=== PATIENT | female | born 1980 | race Caucasian/White ===

== ENCOUNTER 2018-01-01 14:39 | Emergency (ER) | payer OTHER ==
[2018-01-01 15:02] VITALS: TEMP 98.7
[2018-01-01 16:15] LABS: Appearance,Urine Clear (Clear); Bacteria,Urine Rare /hpf; Bilirubin,Urine Negative (Negative); Blood,Urine Trace (Negative); Color,Urine Yellow; Glucose,Urine (UA) Negative (Negative); Ketones,Urine Negative (Negative); Leukocyte Esterase,Urine Negative (Negative); Mucus,Urine Rare /hpf; Nitrite,Urine Negative (Negative); PH, Urine 5.5 (5.0-8.0); Protein,Urine Negative (Negative); RBC,Urine 3 /hpf (0-5); Squamous Epithelial Cell,Urine 1 /hpf (0-4); Urobilinogen,Urine <2.0 mg/dL (<2.0); WBC,Urine 1 /hpf (0-5)
[2018-01-01 16:28] LABS: Amphetamine Screen,Urine Not Detected (NotDetected); Barbiturate Screen,Urine Not Detected (NotDetected); Benzodiazepines Screen,Urine Not Detected (NotDetected); Cocaine Screen,Urine Not Detected (NotDetected); Methadone Screen, Urine Not Detected (NotDetected); Opiate Screen,Urine Not Detected (NotDetected); Oxycodone Screen, Urine Not Detected (NotDetected); Phencyclidine Screen,Urine Not Detected (NotDetected); Tricyclic Antidepressant,Urine Not Detected (NotDetected); Urn Cannabinoid Scrn Not Detected (NotDetected)
[2018-01-01 16:51] LABS: Basophils % (A) 0 %; Eosinophils # (A) 0.1 k/uL (0-0.7); Eosinophils % (A) 3 %; HCT 41.1 % (34.0-46.0); HGB 13.5 gm/dL (11.4-16.0); Lymphocytes # (A) 1.6 k/uL (1.0-4.8); Lymphocytes % (A) 32 %; MCH 29.4 pg (25.0-35.0); MCV 89.1 fL (80.0-100.0); Mean Platelet Volume 8.3; Monocytes # (A) 0.3 k/uL (0-1.0); Monocytes % (A) 7 %; Neutrophils # (A) 2.9 k/uL (1.3-7.7); Neutrophils % (A) 57 %; Platelet Count 221 k/uL (150-450); RBC 4.61 m/uL (3.80-5.40); RDW 14.1 % (11.5-15.5)
[2018-01-01 17:03] LABS: ALT 33 U/L (9-52); AST 22 U/L (14-36); Albumin 3.5 g/dL (3.5-5.0); Alkaline Phosphatase 51 U/L (38-126); Anion Gap 10 mmol/L; Blood Urea Nitrogen 11 mg/dL (7-17); Carbon Dioxide 26 mmol/L (22-30); Chloride 107 mmol/L (98-107); Glucose 92 mg/dL (74-99); Potassium 4.4 mmol/L (3.5-5.1); Sodium 143 mmol/L (137-145); Total Bilirubin 0.4 mg/dL (0.2-1.3); Total Protein 6.4 g/dL (6.3-8.2)
[2018-01-01] MEDS ORDERED: methylPREDNISolone SOD SUCCI 125 MG/2 ML VIAL IV STA (17:08)
[2018-01-01] MEDS ORDERED: METOCLOPRAMIDE 5 MG/ML 2 ML VIAL IVP STA (17:08)
[2018-01-01] MEDS ORDERED: FAMOTIDINE 20 MG/2 ML VIAL IV STA (17:08)
[2018-01-01] MEDS ORDERED: diphenhydrAMINE 50 MG/ML 1 ML VIAL IVP STA (17:08)
[2018-01-01 17:39] LABS: Partial Thromboplastin Time 22.6 sec (22.0-30.0); Prothrombin Time 9.9 sec (9.0-12.0)
[2018-01-01 17:46] LABS: Creatine Kinase 57 U/L (30-135)
[2018-01-01 17:56] LABS: Creatine Kinase MB 0.3 ng/mL (0.0-2.4)
--- NOTE | 2018-01-01 17:58 | ED ---
General Adult HPI - General Chief complaint: Recheck/Abnormal Lab/Rx Stated complaint: Nausea Dizziness Time Seen by Provider: 01/01/18 16:24 Source: patient, RN notes reviewed, old records reviewed Mode of arrival: ambulatory Limitations: no limitations - History of Present Illness Initial comments: This patient is a 37-year-old female with multiple vague complaints. She reports that she's been feeling very weak and fatigued. She reports that she's been having muscle twitches and spasms. She relates that she has felt nauseated earlier in the week and had a few episodes of vomiting. Patient also relates that 2 days ago she had an episode for 6 hours or she was unable to speak. She reports that that resolved slowly. At this time she denies any headache, denies any chest pain or shortness of breath she just generally feels weak and nauseated. She reports that her stomach sometimes feels like it did not. Patient also presents with 1 day of hives. - Related Data Home Medications Medication Instructions Recorded Confirmed Ibuprofen [Advil] 600 mg PO Q8HR PRN 01/01/18 01/01/18 Previous Rx's Medication Instructions Recorded Meclizine [Antivert] 25 mg PO BID #20 tab 01/01/18 Ondansetron Odt [Zofran Odt] 4 mg PO Q8HR PRN #20 tab 01/01/18 diphenhydrAMINE [Benadryl] 25 mg PO TID #20 capsule 01/01/18 predniSONE 20 mg PO BID #6 tab 01/01/18 Allergies Allergy/AdvReac Type Severity Reaction Status Date / Time paliperidone [From Invega] Allergy Unknown Verified 01/01/18 16:48 Review of Systems ROS Statement: Those systems with pertinent positive or pertinent negative responses have been documented in the HPI. ROS Other: All systems not noted in ROS Statement are negative. Past Medical History Past Medical History: No Reported History History of Any Multi-Drug Resistant Organisms: None Reported Past Surgical History: Cholecystectomy, Tubal Ligation Past Psychological History: No Psychological Hx Reported Smoking Status: Current every day smoker Past Alcohol Use History: Occasional Past Drug Use History: None Reported General Exam - General Exam Comments Initial Comments: 37-year-old female. Alert and oriented. No distress. Limitations: no limitations General appearance: alert, in no apparent distress Head exam: Present: atraumatic, normocephalic, normal inspection Eye exam: Present: normal appearance, PERRL, EOMI. Absent: scleral icterus, conjunctival injection, periorbital swelling ENT exam: Present: normal exam, mucous membranes moist Neck exam: Present: normal inspection. Absent: tenderness, meningismus, lymphadenopathy Respiratory exam: Present: normal lung sounds bilaterally. Absent: respiratory distress, wheezes, rales, rhonchi, stridor Cardiovascular Exam: Present: regular rate, normal rhythm, normal heart sounds. Absent: systolic murmur, diastolic murmur, rubs, gallop, clicks GI/Abdominal exam: Present: soft, normal bowel sounds. Absent: distended, tenderness, guarding, rebound, rigid Extremities exam: Present: normal inspection, full ROM, normal capillary refill. Absent: tenderness, pedal edema, joint swelling, calf tenderness Back exam: Present: normal inspection, full ROM Neurological exam: Present: alert, oriented X3, CN II-XII intact, normal gait Expanded Patient oriented to: Present: person, place, time Speech: Present: fluid speech Cranial nerves: EOM's Intact: Normal Cerebellar function: Finger to Nose: Normal Upper motor neuron: Pronator Drift: Normal Sensory exam: Upper Extremity Light Touch: Normal, Lower Extremity Light Touch: Normal Motor strength exam: RUE: 5, LUE: 5, RLE: 5, LLE: 5 Eye Response: (4) open spontaneously Motor Response: (6) obeys commands Verbal Response: (5) oriented [place] Total: 15 Psychiatric exam: Present: normal affect, normal mood Skin exam: Present: warm, dry, intact, normal color, rash (Patient has some mild hives noted.) Course Vital Signs 01/01/18 01/01/18 14:57 17:30 Temperature 98.7 F Pulse Rate 89 74 Respiratory 18 16 Rate Blood Pressure 120/71 118/56 O2 Sat by Pulse 97 96 Oximetry EKG Findings - EKG Comments: EKG Findings:: EKG shows normal sinus rhythm and normal EKG noted. Ventricular rate of 71 bpm. OH interval is 154 ms. QRS duration 70 ms. QT QTc is 390/423 ms. Medical Decision Making - Medical Decision Making Patient is a 37-year-old female multiple complaints including fatigue, occasional dizziness, nausea, and hives. Patient also states that she had a episode of difficulty in speech a few days ago. It lasted 6 hours and then resolved. This time patient's labwork was reviewed and within normal limits. EKG shows no abnormalities. Troponins negative. All of her blood work was within normal range. Urinalysis shows no signs of infection. Urine drug screen is normal. She has no focal or lateralizing findings on neurological exam. Lungs are clear. She has no significant abdominal tenderness. She really complains of no pain just some mild dizziness. Patient was given nausea medication Benadryl. She reports she feels somewhat better. Her hives are diminishing at this time. This were no focal reason for patient's related dizziness and multiple complaints. I discussed that she should follow-up with primary care provider as well as possibly neurology. Patient be given referrals. We'll start the patient on meclizine and nausea medicine for dizziness and nausea. Discussed appropriate follow-up. All questions answered and return parameters were discussed. - Lab Data Result diagrams: 01/01/18 16:41 01/01/18 16:41 Lab Results 01/01/18 01/01/18 01/01/18 Range/Units 16:03 16:03 16:41 WBC (3.8-10.6) k/uL RBC (3.80-5.40) m/uL Hgb (11.4-16.0) gm/dL Hct (34.0-46.0) % MCV (80.0-100.0) fL MCH (25.0-35.0) pg MCHC (31.0-37.0) g/dL RDW (11.5-15.5) % Plt Count (150-450) k/uL Neutrophils % % Lymphocytes % % Monocytes % % Eosinophils % % Basophils % % Neutrophils # (1.3-7.7) k/uL Lymphocytes # (1.0-4.8) k/uL Monocytes # (0-1.0) k/uL Eosinophils # (0-0.7) k/uL Basophils # (0-0.2) k/uL PT (9.0-12.0) sec INR (<1.2) APTT (22.0-30.0) sec Sodium 143 (137-145) mmol/L Potassium 4.4 (3.5-5.1) mmol/L Chloride 107 (98-107) mmol/L Carbon Dioxide 26 (22-30) mmol/L Anion Gap 10 mmol/L BUN 11 (7-17) mg/dL Creatinine 0.80 (0.52-1.04) mg/dL Est GFR (CKD-EPI)AfAm >90 (>60 ml/min/1.73 sqM) Est GFR (CKD-EPI)NonAf >90 (>60 ml/min/1.73 sqM) Glucose 92 (74-99) mg/dL Calcium 9.0 (8.4-10.2) mg/dL Magnesium (1.6-2.3) mg/dL Total Bilirubin 0.4 (0.2-1.3) mg/dL AST 22 (14-36) U/L ALT 33 (9-52) U/L Alkaline Phosphatase 51 (38-126) U/L Total Creatine Kinase (30-135) U/L CK-MB (CK-2) (0.0-2.4) ng/mL CK-MB (CK-2) Rel Index Troponin I (0.000-0.034) ng/mL NT-Pro-B Natriuret Pep pg/mL Total Protein 6.4 (6.3-8.2) g/dL Albumin 3.5 (3.5-5.0) g/dL Amylase (30-110) U/L Lipase (23-300) U/L Urine Color Yellow Urine Appearance Clear (Clear) Urine pH 5.5 (5.0-8.0) Ur Specific [place] 1.010 (1.001-1.035) Urine Protein Negative (Negative) Urine Glucose (UA) Negative (Negative) Urine Ketones Negative (Negative) Urine Blood Trace H (Negative) Urine Nitrite Negative (Negative) Urine Bilirubin Negative (Negative) Urine Urobilinogen <2.0 (<2.0) mg/dL Ur Leukocyte Esterase Negative (Negative) Urine RBC 3 (0-5) /hpf Urine WBC 1 (0-5) /hpf Ur Squamous Epith Cells 1 (0-4) /hpf Urine Bacteria Rare H (None) /hpf Urine Mucus Rare H (None) /hpf Urine HCG, Qual Not Detected (Not Detectd) Urine Opiates Screen Not Detected (NotDetected) Ur Oxycodone Screen Not Detected (NotDetected) Urine Methadone Screen Not Detected (NotDetected) Ur Propoxyphene Screen Not Detected (NotDetected) Ur Barbiturates Screen Not Detected (NotDetected) U Tricyclic Antidepress Not Detected (NotDetected) Ur Phencyclidine Scrn Not Detected (NotDetected) Ur Amphetamines Screen Not Detected (NotDetected) U Methamphetamines Scrn Not Detected (NotDetected) U Benzodiazepines Scrn Not Detected (NotDetected) Urine Cocaine Screen Not Detected (NotDetected) U Marijuana (THC) Screen Not Detected (NotDetected) 01/01/18 01/01/18 01/01/18 Range/Units 16:41 16:41 16:41 WBC 5.0 (3.8-10.6) k/uL RBC 4.61 (3.80-5.40) m/uL Hgb 13.5 (11.4-16.0) gm/dL Hct 41.1 (34.0-46.0) % MCV 89.1 (80.0-100.0) fL MCH 29.4 (25.0-35.0) pg MCHC 33.0 (31.0-37.0) g/dL RDW 14.1 (11.5-15.5) % Plt Count 221 (150-450) k/uL Neutrophils % 57 % Lymphocytes % 32 % Monocytes % 7 % Eosinophils % 3 % Basophils % 0 % Neutrophils # 2.9 (1.3-7.7) k/uL Lymphocytes # 1.6 (1.0-4.8) k/uL Monocytes # 0.3 (0-1.0) k/uL Eosinophils # 0.1 (0-0.7) k/uL Basophils # 0.0 (0-0.2) k/uL PT (9.0-12.0) sec INR (<1.2) APTT (22.0-30.0) sec Sodium (137-145) mmol/L Potassium (3.5-5.1) mmol/L Chloride (98-107) mmol/L Carbon Dioxide (22-30) mmol/L Anion Gap mmol/L BUN (7-17) mg/dL Creatinine (0.52-1.04) mg/dL Est GFR (CKD-EPI)AfAm (>60 ml/min/1.73 sqM) Est GFR (CKD-EPI)NonAf (>60 ml/min/1.73 sqM) Glucose (74-99) mg/dL Calcium (8.4-10.2) mg/dL Magnesium 1.9 (1.6-2.3) mg/dL Total Bilirubin (0.2-1.3) mg/dL AST (14-36) U/L ALT (9-52) U/L Alkaline Phosphatase (38-126) U/L Total Creatine Kinase 57 (30-135) U/L CK-MB (CK-2) 0.3 (0.0-2.4) ng/mL CK-MB (CK-2) Rel Index 0.5 Troponin I <0.012 (0.000-0.034) ng/mL NT-Pro-B Natriuret Pep pg/mL Total Protein (6.3-8.2) g/dL Albumin (3.5-5.0) g/dL Amylase 50 (30-110) U/L Lipase 77 (23-300) U/L Urine Color Urine Appearance (Clear) Urine pH (5.0-8.0) Ur Specific [place] (1.001-1.035) Urine Protein (Negative) Urine Glucose (UA) (Negative) Urine Ketones (Negative) Urine Blood (Negative) Urine Nitrite (Negative) Urine Bilirubin (Negative) Urine Urobilinogen (<2.0) mg/dL Ur Leukocyte Esterase (Negative) Urine RBC (0-5) /hpf Urine WBC (0-5) /hpf Ur Squamous Epith Cells (0-4) /hpf Urine Bacteria (None) /hpf Urine Mucus (None) /hpf Urine HCG, Qual (Not Detectd) Urine Opiates Screen (NotDetected) Ur Oxycodone Screen (NotDetected) Urine Methadone Screen (NotDetected) Ur Propoxyphene Screen (NotDetected) Ur Barbiturates Screen (NotDetected) U Tricyclic Antidepress (NotDetected) Ur Phencyclidine Scrn (NotDetected) Ur Amphetamines Screen (NotDetected) U Methamphetamines Scrn (NotDetected) U Benzodiazepines Scrn (NotDetected) Urine Cocaine Screen (NotDetected) U Marijuana (THC) Screen (NotDetected) 01/01/18 01/01/18 Range/Units 16:41 16:41 WBC (3.8-10.6) k/uL RBC (3.80-5.40) m/uL Hgb (11.4-16.0) gm/dL Hct (34.0-46.0) % MCV (80.0-100.0) fL MCH (25.0-35.0) pg MCHC (31.0-37.0) g/dL RDW (11.5-15.5) % Plt Count (150-450) k/uL Neutrophils % % Lymphocytes % % Monocytes % % Eosinophils % % Basophils % % Neutrophils # (1.3-7.7) k/uL Lymphocytes # (1.0-4.8) k/uL Monocytes # (0-1.0) k/uL Eosinophils # (0-0.7) k/uL Basophils # (0-0.2) k/uL PT 9.9 (9.0-12.0) sec INR 1.0 (<1.2) APTT 22.6 (22.0-30.0) sec Sodium (137-145) mmol/L Potassium (3.5-5.1) mmol/L Chloride (98-107) mmol/L Carbon Dioxide (22-30) mmol/L Anion Gap mmol/L BUN (7-17) mg/dL Creatinine (0.52-1.04) mg/dL Est GFR (CKD-EPI)AfAm (>60 ml/min/1.73 sqM) Est GFR (CKD-EPI)NonAf (>60 ml/min/1.73 sqM) Glucose (74-99) mg/dL Calcium (8.4-10.2) mg/dL Magnesium (1.6-2.3) mg/dL Total Bilirubin (0.2-1.3) mg/dL AST (14-36) U/L ALT (9-52) U/L Alkaline Phosphatase (38-126) U/L Total Creatine Kinase (30-135) U/L CK-MB (CK-2) (0.0-2.4) ng/mL CK-MB (CK-2) Rel Index Troponin I (0.000-0.034) ng/mL NT-Pro-B Natriuret Pep 30 pg/mL Total Protein (6.3-8.2) g/dL Albumin (3.5-5.0) g/dL Amylase (30-110) U/L Lipase (23-300) U/L Urine Color Urine Appearance (Clear) Urine pH (5.0-8.0) Ur Specific [place] (1.001-1.035) Urine Protein (Negative) Urine Glucose (UA) (Negative) Urine Ketones (Negative) Urine Blood (Negative) Urine Nitrite (Negative) Urine Bilirubin (Negative) Urine Urobilinogen (<2.0) mg/dL Ur Leukocyte Esterase (Negative) Urine RBC (0-5) /hpf Urine WBC (0-5) /hpf Ur Squamous Epith Cells (0-4) /hpf Urine Bacteria (None) /hpf Urine Mucus (None) /hpf Urine HCG, Qual (Not Detectd) Urine Opiates Screen (NotDetected) Ur Oxycodone Screen (NotDetected) Urine Methadone Screen (NotDetected) Ur Propoxyphene Screen (NotDetected) Ur Barbiturates Screen (NotDetected) U Tricyclic Antidepress (NotDetected) Ur Phencyclidine Scrn (NotDetected) Ur Amphetamines Screen (NotDetected) U Methamphetamines Scrn (NotDetected) U Benzodiazepines Scrn (NotDetected) Urine Cocaine Screen (NotDetected) U Marijuana (THC) Screen (NotDetected) - Radiology Data Radiology results: report reviewed CT brain is negative for any abnormal values. His x-ray was within normal limits. Disposition Clinical Impression: Dizziness, Hives, Nausea Disposition: HOME SELF-CARE Condition: Good Instructions: Dizziness (ED) Additional Instructions: Patient advised to take the steroids and Benadryl for the hives. Take nausea medicine and use the duodenum medicine as well. Return to the emergency department if any alarming signs or symptoms occur. Patient is follow-up with primary care provider. Prescriptions: diphenhydrAMINE [Benadryl] 25 mg PO TID #20 capsule Meclizine [Antivert] 25 mg PO BID #20 tab Ondansetron Odt [Zofran Odt] 4 mg PO Q8HR PRN #20 tab PRN Reason: Nausea predniSONE 20 mg PO BID #6 tab Referrals: None,Stated [Primary Care Provider] - 1-2 days Robin Bates MD [STAFF PHYSICIAN] - 1-2 days Aranza Poe MD [STAFF PHYSICIAN] - 1-2 days Juan Raza MD [STAFF PHYSICIAN] - 1-2 days Time of Disposition: 19:28
[2018-01-01 18:00] LABS: Troponin I <0.012 ng/mL (0.000-0.034)
[2018-01-01 18:13] LABS: Magnesium 1.9 mg/dL (1.6-2.3)
--- NOTE | 2018-01-01 18:51 | CT ---
EXAMINATION TYPE: CT brain wo con DATE OF EXAM: 01/01/2018 COMPARISON: NONE HISTORY: Dizziness and weakness. CT DLP: 1067 mGycm. Automated Exposure Control for Dose Reduction was Utilized. TECHNIQUE: CT scan of the head is performed without contrast. FINDINGS: Ventricles appear normal. There is no mass effect nor midline shift. There is no sign of intracranial hemorrhage. The calvarium appears intact. CONCLUSION: Negative CT scan of the brain.
--- NOTE | 2018-01-01 19:09 | XR ---
EXAMINATION TYPE: XR chest 2V DATE OF EXAM: 01/01/2018 COMPARISON: NONE HISTORY: Weakness and dizziness TECHNIQUE: Frontal and lateral views of the chest are obtained. FINDINGS: Heart and mediastinum are normal. Lungs are clear. Diaphragm is normal. There are chest le ads. Bony thorax is intact. IMPRESSION: Normal chest
[2018-01-01 20:01] VITALS: BP 118/73; PULSE 68; RESP 19
== END 2018-01-01 20:02 | disposition home or self-care (01) ==
LOC: EC 14:39
DX: R42 Dizziness and giddiness (principal); L50.9 Urticaria, unspecified; R53.83 Other fatigue; R53.1 Weakness; R11.2 Nausea with vomiting, unspecified; F17.200 Nicotine dependence, unspecified, uncomplicated; Z88.8 Allergy status to other drugs, medicaments and biological substances
CPT/HCPCS: 36415; 93005; 83880; 80053; 82150; 82550; 82553; 83690; 83735; 84484; 85025; 85610; 85730; 81001; 81025; 80306; 71046; 70450; 99285; 96374; 96375 ×3; J1200; J2765; J2930

== ENCOUNTER 2018-02-15 13:40 | Emergency (ER) | payer OTHER ==
[2018-02-15 13:52] VITALS: BP 112/75; PULSE 97; RESP 18; TEMP 98.4
--- NOTE | 2018-02-15 14:21 | ED ---
General Adult HPI - General Chief complaint: Upper Respiratory Infection Stated complaint: Sinus Congestion Time Seen by Provider: 02/15/18 13:57 Source: patient, RN notes reviewed Mode of arrival: ambulatory Limitations: no limitations - History of Present Illness Initial comments: 37-year-old female was sent to the emergency department for a chief complaint of sinus congestion x 3 days. Patient also thinks she might be . Patient states she has had a tubal ligation but she has had morning sickness for the past couple days. She states "god works in mysterious ways." Patient states she is currently living in a homeless [facility]. Patient states she is not allowed to carry a water bottle around it is making her dehydrated. Patient does not want to be evaluated for dehydration. Patient would like a note for carrying around water. Patient has no other complaints at this time including shortness of breath, chest pain, abdominal pain, nausea or vomiting, headache, or visual changes. - Related Data Home Medications Medication Instructions Recorded Confirmed Ibuprofen [Advil] 600 mg PO Q8HR PRN 01/01/18 02/15/18 Previous Rx's Medication Instructions Recorded Meclizine [Antivert] 25 mg PO BID #20 tab 01/01/18 Ondansetron Odt [Zofran Odt] 4 mg PO Q8HR PRN #20 tab 01/01/18 diphenhydrAMINE [Benadryl] 25 mg PO TID #20 capsule 01/01/18 predniSONE 20 mg PO BID #6 tab 01/01/18 Fluticasone Nasal [place] [Flonase 1 spray EA NOSTRIL DAILY #1 bottle 02/15/18 Nasal [place]] Guaifenesin/Pseudoephedrne HCl 1 each PO Q12H PRN #20 tab.er.12h 02/15/18 [Mucinex D ER 1,200-120 mg Tab] Loratadine [Claritin] 10 mg PO DAILY #20 tab 02/15/18 Allergies Allergy/AdvReac Type Severity Reaction Status Date / Time paliperidone [From Invega] Allergy Unknown Verified 02/15/18 13:52 Review of Systems ROS Statement: Those systems with pertinent positive or pertinent negative responses have been documented in the HPI. ROS Other: All systems not noted in ROS Statement are negative. Past Medical History Past Medical History: No Reported History History of Any Multi-Drug Resistant Organisms: None Reported Past Surgical History: Cholecystectomy, Tubal Ligation Past Psychological History: Anxiety Smoking Status: Current every day smoker Past Alcohol Use History: Occasional Past Drug Use History: None Reported General Exam Limitations: no limitations General appearance: alert, in no apparent distress Eye exam: Present: normal appearance, PERRL, EOMI. Absent: scleral icterus, conjunctival injection, periorbital swelling ENT exam: Present: normal exam, normal oropharynx (No erythema or tonsillar exudates noted. There is some mucus noted at the posterior oropharynx.), mucous membranes moist, TM's normal bilaterally (Non-erythematous eardrums bilaterally.), normal external ear exam Neck exam: Present: normal inspection, full ROM. Absent: tenderness, meningismus, lymphadenopathy Respiratory exam: Present: normal lung sounds bilaterally. Absent: respiratory distress, wheezes, rales, rhonchi, stridor Cardiovascular Exam: Present: regular rate, normal rhythm, normal heart sounds. Absent: systolic murmur, diastolic murmur, rubs, gallop, clicks GI/Abdominal exam: Present: soft, normal bowel sounds. Absent: distended, tenderness, guarding, rebound, rigid Course Vital Signs 02/15/18 13:47 Temperature 98.4 F Pulse Rate 97 Respiratory 18 Rate Blood Pressure 112/75 O2 Sat by Pulse 96 Oximetry Medical Decision Making - Medical Decision Making 37-year-old female presents to the emergency determine for a chief complaint of sinus congestion 3 days. Patient denies fevers or chills at home. Denies sore throat. Admits to ear pressure from sinuses. Patient states she also has a cough and is a smoker. Patient denies shortness of breath or difficulty breathing. Patient states she may also be . Vitals within normal limits. On exam patient has mild nasal congestion. No evidence of pharyngitis or otitis media. No abdominal tenderness. Lungs are clear to auscultation bilaterally. I recommended a chest x-ray to the patient as she is a smoker with a cough which patient refuses. She states she no she does not have pneumonia and does not need an x-ray at this time. She states she does not have time to have an x-ray done. HCG negative. Patient was educated that she likely has a viral upper respiratory infection. She will be given Claritin, Mucinex, and a nasal spray. She was educated to return if symptoms are not resolved in 10 days or she has high fevers that cannot be reduced with Motrin or Tylenol. She was also educated to come back if her cough worsens for an x- ray. Follow-up with primary care in 1-2 days. - Lab Data Lab Results 02/15/18 02/15/18 Range/Units 14:20 14:20 Urine Color Yellow Urine Appearance Clear (Clear) Urine pH 5.5 (5.0-8.0) Ur Specific [place] 1.009 (1.001-1.035) Urine Protein Negative (Negative) Urine Glucose (UA) Negative (Negative) Urine Ketones Negative (Negative) Urine Blood Negative (Negative) Urine Nitrite Negative (Negative) Urine Bilirubin Negative (Negative) Urine Urobilinogen <2.0 (<2.0) mg/dL Ur Leukocyte Esterase Negative (Negative) Urine HCG, Qual Not Detected (Not Detectd) Disposition Clinical Impression: Viral upper respiratory infection Disposition: HOME SELF-CARE Condition: Good Instructions: Upper Respiratory Infection (ED) Additional Instructions: Please take prescriptions as directed. Please return to the emergency department if you have any worsening symptoms or high fevers. Otherwise follow- up with primary care in 1-2 days. Prescriptions: Fluticasone Nasal [place] [Flonase Nasal [place]] 1 spray EA NOSTRIL DAILY #1 bottle Guaifenesin/Pseudoephedrne HCl [Mucinex D ER 1,200-120 mg Tab] 1 each PO Q12H PRN #20 tab.er.12h PRN Reason: Congestion Loratadine [Claritin] 10 mg PO DAILY #20 tab Is patient prescribed a controlled substance at d/c from ED?: No Referrals: Ryan Sommers DO [STAFF PHYSICIAN] - 1-2 days Time of Disposition: 14:38
[2018-02-15 14:25] LABS: Appearance,Urine Clear (Clear); Bilirubin,Urine Negative (Negative); Blood,Urine Negative (Negative); Color,Urine Yellow; Glucose,Urine (UA) Negative (Negative); Ketones,Urine Negative (Negative); Leukocyte Esterase,Urine Negative (Negative); Nitrite,Urine Negative (Negative); PH, Urine 5.5 (5.0-8.0); Protein,Urine Negative (Negative); Specific Gravity,Urine 1.009 (1.001-1.035); Urobilinogen,Urine <2.0 mg/dL (<2.0)
== END 2018-02-15 14:36 | disposition home or self-care (01) ==
LOC: EC 13:40
DX: J06.9 Acute upper respiratory infection, unspecified (principal); Z32.02 Encounter for pregnancy test, result negative; F17.200 Nicotine dependence, unspecified, uncomplicated; Z88.8 Allergy status to other drugs, medicaments and biological substances; Z98.51 Tubal ligation status; Z59.0 Homelessness
CPT/HCPCS: 81003; 81025; 99283

== ENCOUNTER 2018-09-12 14:33 | Observation (INO) | payer OTHER ==
[2018-09-12] MEDS ORDERED: SODIUM CHLORIDE 0.9% 500 ML 500 ML IV ONE (14:58)
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
[2018-09-12 15:34] LABS: Glucose,Whole Blood 89 mg/dL (75-99)
[2018-09-12 15:36] LABS: Basophils % (A) 0 %; Eosinophils # (A) 0.1 k/uL (0-0.7); Eosinophils % (A) 2 %; HCT 41.8 % (34.0-46.0); HGB 13.7 gm/dL (11.4-16.0); Lymphocytes # (A) 1.4 k/uL (1.0-4.8); Lymphocytes % (A) 27 %; MCH 28.5 pg (25.0-35.0); MCHC 32.7 g/dL (31.0-37.0); MCV 87.1 fL (80.0-100.0); Monocytes # (A) 0.3 k/uL (0-1.0); Monocytes % (A) 6 %; Neutrophils # (A) 3.3 k/uL (1.3-7.7); Neutrophils % (A) 62 %; Platelet Count 206 k/uL (150-450); RDW 15.4 % (11.5-15.5); WBC 5.3 k/uL (3.8-10.6)
[2018-09-12 15:51] LABS: ALT 29 U/L (9-52); AST 29 U/L (14-36); Albumin 3.7 g/dL (3.5-5.0); Alkaline Phosphatase 43 U/L (38-126); Anion Gap 7 mmol/L; Blood Urea Nitrogen 14 mg/dL (7-17); Calcium 9.1 mg/dL (8.4-10.2); Carbon Dioxide 23 mmol/L (22-30); Chloride 112 mmol/L (98-107); Glucose 90 mg/dL (74-99); Potassium 4.3 mmol/L (3.5-5.1); Sodium 142 mmol/L (137-145); Total Bilirubin 0.7 mg/dL (0.2-1.3); Total Protein 6.8 g/dL (6.3-8.2)
[2018-09-12 15:56] LABS: Creatine Kinase 168 U/L (30-135)
[2018-09-12 16:09] LABS: Creatine Kinase MB 1.2 ng/mL (0.0-2.4); Troponin I <0.012 ng/mL (0.000-0.034)
--- NOTE | 2018-09-12 16:25 | XR ---
EXAMINATION TYPE: XR chest 2V DATE OF EXAM: 09/12/2018 COMPARISON: 01/01/2018 HISTORY: Chest pain TECHNIQUE: Frontal and lateral views of the chest are obtained. FINDINGS: There is no focal air space opacity. No evidence for pneumothorax. No pleural effusion. The cardiac silhouette size is within normal limits. The osseous structures are grossly intact. IMPRESSION: 1. No acute cardiopulmonary process.
--- NOTE | 2018-09-12 16:32 | CT ---
EXAMINATION TYPE: CT brain wo con DATE OF EXAM: 09/12/2018 COMPARISON: 01/01/2018 HISTORY: Altered mental status. CT DLP: 1090.[address] of the brain was performed. The ventricles, basal cisterns and sulci overlying the cerebral convexities demonstrate a normal appe arance. There is no evidence for intracranial hemorrhage or sulcal effacement. No mass effects are seen. Osseous calvarium is intact. If symptoms persist consider MRI as clinically warranted. IMPRESSION: 1. No acute intracranial process is seen at this time.
[2018-09-12 16:54] LABS: Appearance,Urine Cloudy (Clear); Bacteria,Urine Many /hpf; Bilirubin,Urine Negative (Negative); Blood,Urine Negative (Negative); Color,Urine Light Yellow; Glucose,Urine (UA) Negative (Negative); Ketones,Urine Negative (Negative); Leukocyte Esterase,Urine Negative (Negative); Mucus,Urine Rare /hpf; Nitrite,Urine Positive (Negative); Protein,Urine Negative (Negative); Specific Gravity,Urine 1.007 (1.001-1.035); Squamous Epithelial Cell,Urine 4 /hpf (0-4); Urobilinogen,Urine <2.0 mg/dL (<2.0); WBC,Urine <1 /hpf (0-5)
[2018-09-12 17:02] LABS: Amphetamine Screen,Urine Not Detected (NotDetected); Barbiturate Screen,Urine Not Detected (NotDetected); Benzodiazepines Screen,Urine Not Detected (NotDetected); Cocaine Screen,Urine Not Detected (NotDetected); Methadone Screen, Urine Not Detected (NotDetected); Opiate Screen,Urine Not Detected (NotDetected); Oxycodone Screen, Urine Not Detected (NotDetected); Phencyclidine Screen,Urine Not Detected (NotDetected); Tricyclic Antidepressant,Urine Not Detected (NotDetected); Urn Cannabinoid Scrn Not Detected (NotDetected)
[2018-09-12] MEDS ORDERED: SODIUM CHLORIDE 0.9% 1,000 ML IV ONE (17:03)
[2018-09-12] MEDS ORDERED: NICOTINE 21MG/24HR PATCH TRANSDERM STA (19:07)
[2018-09-12] MEDS ORDERED: HALOPERIDOL 5 MG TAB PO PRN (21:35)
[2018-09-12] MEDS: LORazepam 1 MG TAB PO PRN (22:27)
[2018-09-13 07:48] VITALS: RESP 18
--- NOTE | 2018-09-13 13:17 | HP ---
HISTORY AND PHYSICAL CHIEF COMPLAINT: Generalized weakness and muscle twitching. HISTORY OF PRESENT ILLNESS: This is the first known admission for this 38-year-old white female. She came to emergency room with a very bizarre symptoms and seemed to be extremely agitated. There was concern that this may represent a neurologic episode or condition, it was felt possibly to be more psychiatric than anything else. She is extremely agitated, angry, aggressive and kept saying over and over again how much various people disturb her. In the emergency room she had a CT of the brain, which was normal. EKG was normal. She was evaluated and admitted for further neurologic followup. Laboratory studies were essentially all normal. Drug screen was negative. REVIEW OF SYSTEMS: She had no other complaints, headaches, problems with vision hearing, chest pain, shortness of breath, abdominal pain, nausea, vomiting, disease, hematemesis, melena, hematochezia, jaundice, hematuria, frequency, urgency, arthralgias, diabetes, etc. Past medical history, family history, and personal and social histories were all otherwise unremarkable and noncontributory. She continued to talk about generalized weakness that would come and go and it could be associated with some twitching in both the upper and lower extremities. She had been in the hospital in December for similar symptoms and worked up without anything being found. Past medical history, family history personal and social histories reveal that she is ALLERGIC TO INVEGA. She has had 2 pregnancies and 2 deliveries and she has had tubal ligation and cholecystectomy. SOCIAL HISTORY: She drinks alcohol occasionally and denies drug use. She smokes a pack of cigarettes a day. MEDICATIONS: She does not take any medication except occasional Advil 200 mg p.r.n. PHYSICAL EXAMINATION: VITAL SIGNS: Temperature is 98, blood pressure 126/92, pulse 79, respirations of 18. GENERAL: She appeared to be well developed, well nourished, in no acute distress but very agitated. Skin color is normal. Skin is warm, dry. Lymph nodes not enlarged. HEENT: Head, ears, eyes, nose, mouth, and throat were normal and neck veins not distended. Thyroid not enlarged. CHEST: Clear. Cardiac exam is normal. Abdomen is soft, nontender. EXTREMITIES: Normal. NEUROLOGICAL: She is intact. She had no obvious muscle twitching or spasm and she had no neurologic abnormalities on sensory motor exam or cranial nerves. IMPRESSION: 1. Intermittent generalized weakness, unknown. 2. Episodes of twitching, etiology unknown. 3. Anger management issues. PLAN: 1. Bed rest. 2. IV fluids. 3. Neurologic monitoring and evaluation. 4. Psychiatric consult. FERNANDO / DICKSON: [id number] /
[2018-09-13] MEDS: LORazepam 1 MG TAB PO PRN (15:54)
--- NOTE | 2018-09-13 18:35 | PN ---
PROGRESS NOTE CHIEF COMPLAINT: Extreme agitation. HISTORY OF PRESENT ILLNESS: This lady is still hyper irritable and manic. She has been seen by psych nurse and has been petitioned to move to [facility]. However, apparently she had to be seen by psychiatrist first. Physical exam is unremarkable but she is still extremely agitated and hyperactive and manic. She will be transferred to [facility] when she is approved by psych. FERNANDO / RICON: [id number] /
[2018-09-13 20:19] VITALS: BP 135/89; PULSE 86; TEMP 98
== END 2018-09-13 20:50 | disposition other institution (70) ==
LOC: EC 14:33 → 3NMEDONC 17:05 → 4MS4W 17:46
PROVIDERS: ADMIT Family Medicine; ATTEND Family Medicine
DX: R53.1 Weakness (principal); R25.3 Fasciculation; R45.4 Irritability and anger; R45.1 Restlessness and agitation; Z88.8 Allergy status to other drugs, medicaments and biological substances; Z90.49 Acquired absence of other specified parts of digestive tract; F17.210 Nicotine dependence, cigarettes, uncomplicated
CPT/HCPCS: 96361 ×3; 96360; 99285; 36415; 93005; 80053; 82550; 82553; 84484; 85025; 81001; 80306; 87086; 87077; 87186; 71046; 70450; G0378 ×3; S4990

== ENCOUNTER 2018-09-13 20:23 | Inpatient (IN) | payer MEDICAID, OTHER ==
[2018-09-13] MEDS ORDERED: ACETAMINOPHEN TAB 325 MG TAB PO PRN (21:15)
[2018-09-13] MEDS ORDERED: MAGNESIUM HYDROXIDE 2,400 MG/10 ML CUP PO PRN (21:15)
[2018-09-13] MEDS ORDERED: MAG HYDROX/AL HYDROX/SIMETH 30 ML CUP PO PRN (21:15)
[2018-09-13] MEDS ORDERED: NICOTINE 14MG/24HR PATCH TRANSDERM STA (21:34)
[2018-09-14 07:56] LABS: Cholesterol 185 mg/dL (<200); HDL Cholesterol 56 mg/dL (40-60); LDL Cholesterol,Calculated 110 mg/dL (0-99); Triglycerides 94 mg/dL (<150)
[2018-09-14] MEDS: NICOTINE 14MG/24HR PATCH TRANSDERM SCH (08:23)
[2018-09-14] MEDS: DIVALPROEX 500 MG TABLET.DR PO SCH ×2 (08:24→20:15)
[2018-09-14] MEDS: OLANZapine 5 MG TAB PO SCH ×2 (08:24→20:15)
[2018-09-14 11:18] VITALS: BMI 30.1
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
--- NOTE | 2018-09-14 12:48 | CONS ---
CONSULTATION CHIEF COMPLAINT: Psychosis with anger issues, depression and a hostile personality. HISTORY OF PRESENT ILLNESS: This lady was transferred to the psych floor. At the present time she is stable. She seems calm. She has been started on medication, but had not seen psychiatrist yet. REVIEW OF SYSTEMS: She has no complaints or problems. PHYSICAL EXAM: Color is good. Chest is clear. Cardiac exam is normal. Breast exam is unremarkable. IMPRESSION: 1. Personality disorder. 2. Depression. 3. Anger management issues. 4. Possible homicidal personality. RECOMMENDATIONS: None. MMODL / IJN: [id number] /
[2018-09-14] MEDS: LORazepam 1 MG TAB PO PRN (15:50)
[2018-09-15] MEDS: NICOTINE 14MG/24HR PATCH TRANSDERM SCH (07:49)
[2018-09-15] MEDS: DIVALPROEX 500 MG TABLET.DR PO SCH ×2 (07:49→19:57)
[2018-09-15] MEDS: OLANZapine 5 MG TAB PO SCH ×2 (07:49→19:57)
[2018-09-15] MEDS: LORazepam 1 MG TAB PO PRN ×2 (07:50→14:07)
[2018-09-15 10:30] LABS: Hemoglobin A1C 5.4 % (4.0-6.0)
--- NOTE | 2018-09-15 17:13 | P.PN ---
Progress Note - Text Progress Note Date: 09/15/18 Found her more interactive and calm. But still paranoid delusional. Reports having night manley. Did not sleep good last night MENTAL STATUS EXAM: The patient is an average height and built female appearing her stated age. Poor eye contact. Minimally interactive. Speech soft tone. Mood irritable and anxious with congruent affect. Has homicidal ideation. Paranoid delusional Has poor insight and poor judgment STRENGTHS/WEAKNESSES: Primary support, health, Financial IMPRESSIONS: [] 1. Schizophrenia PLAN: Will add Prazosin 2 mg po qhs and continue to adjust medications accordingly. . We will monitor her for safety and encourage participation in the milieu. Vital signs reviewed.
[2018-09-15] MEDS: PRAZOSIN 1 MG CAP PO SCH (19:58)
[2018-09-16] MEDS: NICOTINE 14MG/24HR PATCH TRANSDERM SCH (08:29)
[2018-09-16] MEDS: LORazepam 1 MG TAB PO PRN ×2 (08:30→16:47)
[2018-09-16] MEDS: DIVALPROEX 500 MG TABLET.DR PO SCH (08:34)
[2018-09-16] MEDS: OLANZapine 5 MG TAB PO SCH (08:34)
[2018-09-16] MEDS ORDERED: HALOPERIDOL DECANOATE 50 MG/ML 1 ML VIAL IM STA (11:00)
--- NOTE | 2018-09-16 12:03 | P.PN ---
Progress Note - Text Progress Note Date: 09/16/18 Found her paranoid delusional. Has been refusing Zyprexa and depakote as they are psych medications. But willing to take oral haldol. Reports having better night with no night manley. Did sleep good last night MENTAL STATUS EXAM: The patient is an average height and built female appearing her stated age. Poor eye contact. Minimally interactive. Speech soft tone. Mood irritable and anxious with congruent affect. Has homicidal ideation. Paranoid delusional Has poor insight and poor judgment STRENGTHS/WEAKNESSES: Primary support, health, Financial IMPRESSIONS: [] 1. Schizophrenia PLAN: Will discontinue Zyprexa and Depakote. Oral Haldol is out of stock. Patient was offered Haldol Deconate 50 q IM Monthly which she agreed after long discussion. Will keep Prazosin 2 mg po qhs and continue to adjust medications accordingly. . We will monitor her for safety and encourage participation in the milieu. Vital signs reviewed.
[2018-09-16] MEDS: PRAZOSIN 1 MG CAP PO SCH (20:16)
[2018-09-17] MEDS: LORazepam 1 MG TAB PO PRN ×3 (00:16→20:06)
[2018-09-17] MEDS: NICOTINE 21MG/24HR PATCH TRANSDERM SCH (08:44)
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
[2018-09-17] MEDS: IBUPROFEN 200 MG TAB PO PRN (14:06)
[2018-09-17] MEDS: PRAZOSIN 1 MG CAP PO SCH (20:05)
[2018-09-18] MEDS: NICOTINE 21MG/24HR PATCH TRANSDERM SCH (07:57)
[2018-09-18] MEDS: LORazepam 1 MG TAB PO PRN ×2 (07:57→15:29)
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
[2018-09-18] MEDS: PRAZOSIN 1 MG CAP PO SCH (20:38)
[2018-09-19] MEDS: NICOTINE 21MG/24HR PATCH TRANSDERM SCH (08:16)
[2018-09-19] MEDS: LORazepam 1 MG TAB PO PRN ×2 (08:18→16:16)
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
[2018-09-19] MEDS ORDERED: LURASIDONE 20 MG TAB PO SCH (18:00)
[2018-09-19] MEDS: lamoTRIgine 25 MG TAB PO SCH (21:05)
[2018-09-19] MEDS: PRAZOSIN 1 MG CAP PO SCH (21:05)
[2018-09-20] MEDS: NICOTINE 21MG/24HR PATCH TRANSDERM SCH (07:37)
[2018-09-20] MEDS: LORazepam 1 MG TAB PO PRN (11:45)
[2018-09-20] MEDS ORDERED: OLANZapine 5 MG TAB PO STA (17:50)
[2018-09-20] MEDS: lamoTRIgine 25 MG TAB PO SCH (20:54)
[2018-09-20] MEDS: PRAZOSIN 1 MG CAP PO SCH (20:54)
--- NOTE | 2018-09-20 22:07 | PN ---
DATE OF SERVICE: 09/20/2018 PROGRESS NOTE CHIEF COMPLAINT: The patient was delusional with paranoid thinking. She believed people including father and sister were out to kill her. INTERVAL HISTORY: The patient has been doing fair. She had a quiet evening last night. She slept fairly well today. She has been up. She attends groups. It is noted that some of the times in groups she is described as bizarre and tangential and at other times she is described as appropriate and engaged. She comes out in the day area. She will interact with others. She seems to be fairly organized in her thoughts. She was able to discuss her situation of coming into the hospital. She can acknowledge that some of her thoughts are likely out of touch with reality. She has been cooperative. She takes medications without resistance. She tolerates his psychotropic medications. MENTAL STATUS: Patient was restless. She gave good eye contact. She answered questions with direct responses. Her thoughts were clear and coherent. At times she was somewhat tangential. Her affect was intense. Her mood dysphoric. She was somewhat distressed. She continues to exhibit some paranoid thinking. She was ambulatory with normal gait and strength. There was no tremor, abnormal movements, or rigidity. ASSESSMENT: I will continue the current diagnosis and general treatment plan. I will increase Prolixin to 10 mg twice a day for continued psychotic symptoms. She will continue Lamictal 25 mg at bedtime. I reviewed medication issues with the patient. We discussed indications as well as side effects and potential risks. I reviewed metabolic concerns relating to antipsychotics. We will continue to focus on stabilization and discharge planning. FERNANDO / RICON: [id number] / MARQUISE
[2018-09-21] MEDS: NICOTINE 21MG/24HR PATCH TRANSDERM SCH (08:02)
--- NOTE | 2018-09-21 17:33 | PN ---
PROGRESS NOTE DATE OF SERVICE: 09/21/2018 CHIEF COMPLAINT: The patient was delusional with paranoid thinking. She believed people including father and sister were out to kill her. INTERVAL HISTORY: The patient has been doing fair. She had a quiet evening last night. She slept fairly well today. She said she slept in. She noted that about an hour after taking medications she was feeling dizzy. She had her blood pressure checked which was 77/48 with a pulse of 57. The blood pressure was checked standing. She then was given some liquids and sat for a few minutes. Her repeat blood pressure was 118/63 with a pulse of 81. She said she did feel dizzy and faint in the morning time, though that cleared. Overall, she feels that she has been doing somewhat better. Her thoughts are a little clearer. She has a calmer mood. She says today she feels a little withdrawn compared to how she had been feeling in the last few days. She did attend group this afternoon and tended to have a quiet manner in group. She has been cooperative. She has not made any clear references towards thoughts that are disconnected from reality. For the most part, she seems to tolerate her medications though she may have been having some affects from three different medications she is on in terms of impacting her blood pressure. MENTAL STATUS: Patient sat without restlessness. Eye contact was fair. Psychomotor activity was slowed. Speech was somewhat monotone. She answered questions with direct responses. Her thoughts were clear and coherent. Her affect was blunted. Her mood reserved. She did not appear to be distressed. There was no references that were out of touch with reality. There was no indication that she responded to internal stimuli. ASSESSMENT: I will continue the current diagnosis and treatment plan. At this point I am concerned that she may have been having some blood pressure issues related to her combination of medications. She has given some history of posttraumatic issues. It is unclear whether she has had persistent nightmares. It sounds as if she may have been started on Minipress for nightmares related to PTSD, though nothing is specified in the record. At this point, I will discontinue Minipress to avoid effects on blood pressure. In addition, she has just been started on Lamictal 25 mg a day. I will discontinue that. Lamictal would be indicated long-term for reduction of relapse of bipolar disorder, though would not have a specific indication to address active symptoms of bipolar condition or psychosis. The main focus would be on her Prolixin. I will continue Prolixin 10 mg twice a day. We will continue to monitor for issues of both mood and thought disorder. I discussed long-term treatment issues with the patient. There might be consideration for restarting her on Lamictal as part of longer term followup, though may not be of immediate concern. Also, given that Lamictal requires a very slow titration, it may be best to defer that to outpatient follow up. We will continue to focus on stabilization and discharge planning. COSMEL / IJN: [id number] /
[2018-09-21] MEDS: lamoTRIgine 25 MG TAB PO SCH (20:27)
[2018-09-22] MEDS: NICOTINE 21MG/24HR PATCH TRANSDERM SCH (08:32)
[2018-09-22] MEDS: IBUPROFEN 200 MG TAB PO PRN (12:51)
--- NOTE | 2018-09-22 14:40 | PN ---
PROGRESS NOTE DATE OF SERVICE: 09/22/2018. CHIEF COMPLAINT: The patient was delusional with paranoid thinking. She believed people including father and sister were out to kill her. INTERVAL HISTORY: Patient has been doing fair. She has been about the same today as she was yesterday. She is more subdued. She seems a little down in her mood. She sleeps fairly well at night. She will attend some groups but not others. The significant change for her is that she can recognize that her thoughts are clear. Staff have noted that she is more reality based. She has not had any inappropriate or odd comments, paranoid thinking seems to be considerably reduced. She has been cooperative. She tolerates her psychotropic medications. She says today that she started her period and feels she is a little slowed down and tired, which she believes is from that. She wonders if her Prolixin that she takes in the morning time may also be making her a little tired. MENTAL STATUS: Patient was in her room lying down. She sat up. She gave fairly good eye contact. Psychomotor activity was slow. Speech was monotone and soft. She answered questions with brief responses. Her thoughts were clear. Affect flat. Mood reserved. It was difficult to say if she was distressed at all. There was no indication of thought disorder. She made no thoughts suggestive of paranoid thinking. ASSESSMENT: I will continue the current diagnosis and treatment plan. I will adjust her Prolixin. She will now get 5 mg in the morning and 20 mg at bedtime. Will monitor her to see how she does with the possible effects of sedation that may relate to the medication. She is showing progress in terms of lessening of thought disorder. Will continue to focus on stabilization and discharge planning. I discussed discharge issues with the patient. MMODL / IJN: [id number] /
[2018-09-22] MEDS: lamoTRIgine 25 MG TAB PO SCH (20:32)
[2018-09-23] MEDS: NICOTINE 21MG/24HR PATCH TRANSDERM SCH (08:43)
[2018-09-23] MEDS: IBUPROFEN 200 MG TAB PO PRN (10:32)
--- NOTE | 2018-09-23 15:08 | PN ---
PROGRESS NOTE DATE OF SERVICE: 09/23/2018. CHIEF COMPLAINT: The patient was delusional with paranoid thinking. She believed people including father and sister were out to kill her. INTERVAL HISTORY: Patient has been doing fair overall. She had a quiet evening last night. She slept 7.5 hours according to documentation. The patient feels that she may have had some difficulty waking up this morning, feeling a little over-sedated. She did not think it was a big issue. Today she has been up. She comes out in the day area. Noted that she will attend some groups though not others. When she is at groups, she tends to have a quiet manner, though she is appropriate. She has tended to stay in her room a fair amount of time. She will come out some though she does not socialize too much with others. Overall, she seems to be a little down in her mood. On the other hand, staff note that early problems she was having including irritability, being sarcastic and having paranoid thinking where she was accusing staff of doing bad things much of that has seemed to dissipate. The patient was able to discuss discharge planning issues. When we discussed this, there was some sense of possible paranoid thinking where she said that her regular psychiatrist might keep her in the hospital "out of spite." She had made contact with [facility], but my understanding is she as yet has not had any regular followup with [facility] and will need a referral there. She tolerates her psychotropic medications. MENTAL STATUS: Patient gave fair eye contact. Psychomotor activity was slowed. Speech was monotone. She answered questions with brief responses. Her thoughts were clear. Her affect was flat. She had almost lethargic manner. She did show a lot of facial expression and appeared a little withdrawn. Her mood was down. She did not appear to be significantly distressed. ASSESSMENT: I will continue the current diagnosis and treatment plan. We will continue psychotropic medications the same including Prolix in 5 mg in the morning and 20 mg at bedtime as her primary psychotropic medication. In regards to sedation issues, she may just be having some adjustment to the increase in Prolix in and the change of dosing. I discussed with the patient that we would keep her Prolix in dosing the same and how she does tomorrow in regards to any effects such as sedation. We discussed discharge planning and I anticipate Social Work will be meeting with her to set up followup referrals. We will continue to focus on stabilization and discharge planning. MMJAYMEL / IJN: [id number] /
[2018-09-24] MEDS: NICOTINE 21MG/24HR PATCH TRANSDERM SCH (08:39)
[2018-09-24] MEDS ORDERED: fluPHENAZine DECANOATE 25 MG/ML 5ML MDV IM ONE (10:00)
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
[2018-09-24 12:44] VITALS: BP 102/65; PULSE 119; RESP 20; TEMP 98.9
== END 2018-09-24 13:32 | disposition home or self-care (01) | DRG 885 ==
LOC: 3MHU 21:03
PROVIDERS: ADMIT Psychiatry & Neurology Psychiatry; ATTEND Psychiatry & Neurology Psychiatry
DX: F25.0 Schizoaffective disorder, bipolar type (principal); R56.9 Unspecified convulsions; R45.850 Homicidal ideations; F43.10 Post-traumatic stress disorder, unspecified; F60.9 Personality disorder, unspecified; R45.5 Hostility; F17.210 Nicotine dependence, cigarettes, uncomplicated; Z91.19 Patient's noncompliance with other medical treatment and regimen; Z71.6 Tobacco abuse counseling; Z79.899 Other long term (current) drug therapy; Z59.9 Problem related to housing and economic circumstances, unspecified; Z88.8 Allergy status to other drugs, medicaments and biological substances
CPT/HCPCS: 80061; 83036

== ENCOUNTER 2020-08-10 17:16 | Inpatient (IN) | payer MEDICAID, OTHER ==
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
[2020-08-10] MEDS ORDERED: ZIPRASIDONE 20 MG VIAL IM PRN (22:05)
[2020-08-10] MEDS ORDERED: ACETAMINOPHEN TAB 325 MG TAB PO PRN (22:05)
[2020-08-10] MEDS ORDERED: LORazepam 1 MG TAB PO PRN (22:05)
[2020-08-10] MEDS ORDERED: MAGNESIUM HYDROXIDE 2,400 MG/10 ML CUP PO PRN (22:05)
[2020-08-10] MEDS ORDERED: MAG HYDROX/AL HYDROX/SIMETH 30 ML CUP PO PRN (22:05)
[2020-08-10] MEDS ORDERED: LORazepam 2 MG/ML INJ IM PRN (22:11)
--- NOTE | 2020-08-11 03:00 | P.PN ---
Progress Note - Text Progress Note Date: 08/10/20 when attempted to see the patient , she had panic attack, and I could not start the interview. ELIO Green was at bed side
[2020-08-11 10:22] LABS: Basophils % (A) 0 %; Eosinophils # (A) 0.2 k/uL (0-0.7); Eosinophils % (A) 3 %; HGB 15.3 gm/dL (11.4-16.0); Lymphocytes # (A) 1.6 k/uL (1.0-4.8); Lymphocytes % (A) 23 %; MCH 29.9 pg (25.0-35.0); MCHC 32.6 g/dL (31.0-37.0); MCV 91.6 fL (80.0-100.0); Mean Platelet Volume 7.4; Monocytes # (A) 0.4 k/uL (0-1.0); Monocytes % (A) 6 %; Neutrophils # (A) 4.5 k/uL (1.3-7.7); Neutrophils % (A) 66 %; Platelet Count 269 k/uL (150-450); RBC 5.13 m/uL (3.80-5.40); RDW 14.9 % (11.5-15.5); WBC 6.8 k/uL (3.8-10.6)
[2020-08-11 10:51] LABS: ALT 19 U/L (4-34); AST 33 U/L (14-36); African American GFR (CKD) >90 (>60 ml/min/1.73 sqM); Albumin 4.2 g/dL (3.5-5.0); Alkaline Phosphatase 64 U/L (38-126); Anion Gap 7 mmol/L; Blood Urea Nitrogen 13 mg/dL (7-17); Calcium 9.6 mg/dL (8.4-10.2); Carbon Dioxide 28 mmol/L (22-30); Chloride 107 mmol/L (98-107); Glucose 91 mg/dL (74-99); Non-African American GFR(CKD) 81 (>60 ml/min/1.73 sqM); Potassium 4.3 mmol/L (3.5-5.1); Sodium 142 mmol/L (137-145); Total Bilirubin 0.8 mg/dL (0.2-1.3); Total Protein 7.6 g/dL (6.3-8.2)
[2020-08-11] MEDS ORDERED: HALOPERIDOL LACTATE 5 MG/ML 1 ML VIAL IM PRN (11:35)
--- NOTE | 2020-08-11 11:35 | P.HP ---
Psychiatric H&P - . H&P Date: 08/11/20 History & Physical: Allergies Allergy/AdvReac Type Severity Reaction Status Date / Time paliperidone From Invega Allergy Unknown Verified 08/11/20 03:59 Vital Signs Temp 98.8 F 08/11/20 02:05 Pulse 77 08/11/20 02:05 Resp 22 08/11/20 02:05 BP 122/61 08/11/20 02:05 Pulse Ox 98 08/10/20 22:27 Intake & Output 08/10/20 08/11/20 08/11/20 18:59 06:59 18:59 Weight 90.718 kg 93.1 kg Laboratory Last Values WBC 6.8 k/uL (3.8-10.6) 08/11/20 09:52 RBC 5.13 m/uL (3.80-5.40) 08/11/20 09:52 Hgb 15.3 gm/dL (11.4-16.0) 08/11/20 09:52 Hct 47.0 % (34.0-46.0) H 08/11/20 09:52 MCV 91.6 fL (80.0-100.0) 08/11/20 09:52 MCH 29.9 pg (25.0-35.0) 08/11/20 09:52 MCHC 32.6 g/dL (31.0-37.0) 08/11/20 09:52 RDW 14.9 % (11.5-15.5) 08/11/20 09:52 Plt Count 269 k/uL (150-450) 08/11/20 09:52 MPV 7.4 08/11/20 09:52 Neutrophils % 66 % 08/11/20 09:52 Lymphocytes % 23 % 08/11/20 09:52 Monocytes % 6 % 08/11/20 09:52 Eosinophils % 3 % 08/11/20 09:52 Basophils % 0 % 08/11/20 09:52 Neutrophils # 4.5 k/uL (1.3-7.7) 08/11/20 09:52 Lymphocytes # 1.6 k/uL (1.0-4.8) 08/11/20 09:52 Monocytes # 0.4 k/uL (0-1.0) 08/11/20 09:52 Eosinophils # 0.2 k/uL (0-0.7) 08/11/20 09:52 Basophils # 0.0 k/uL (0-0.2) 08/11/20 09:52 Sodium 142 mmol/L (137-145) 08/11/20 09:52 Potassium 4.3 mmol/L (3.5-5.1) 08/11/20 09:52 Chloride 107 mmol/L (98-107) 08/11/20 09:52 Carbon Dioxide 28 mmol/L (22-30) 08/11/20 09:52 Anion Gap 7 mmol/L 08/11/20 09:52 BUN 13 mg/dL (7-17) 08/11/20 09:52 Creatinine 0.90 mg/dL (0.52-1.04) 08/11/20 09:52 Est GFR (CKD-EPI)AfAm >90 (>60 ml/min/1.73 sqM) 08/11/20 09:52 Est GFR (CKD-EPI)NonAf 81 (>60 ml/min/1.73 sqM) 08/11/20 09:52 Glucose 91 mg/dL (74-99) 08/11/20 09:52 Calcium 9.6 mg/dL (8.4-10.2) 08/11/20 09:52 Total Bilirubin 0.8 mg/dL (0.2-1.3) 08/11/20 09:52 AST 33 U/L (14-36) 08/11/20 09:52 ALT 19 U/L (4-34) 08/11/20 09:52 Alkaline Phosphatase 64 U/L (38-126) 08/11/20 09:52 Total Protein 7.6 g/dL (6.3-8.2) 08/11/20 09:52 Albumin 4.2 g/dL (3.5-5.0) 08/11/20 09:52 Coronavirus (PCR) Not Detected (Not Detectd) 08/10/20 22:25 08/11/20 11:27 IDENTIFYING DATA: Patient is a 40-year-old female who currently lives with her boyfriend in apartment has 2 kids of her own and is unemployed at this time. HPI: Patient presented to the hospital yesterday and was complaining in the ER of being off of her medications for several months and apparently seeing things and hearing voices. Patient apparently made statements that she may harm herself and was swearing and cursing and demanding to be admitted to the mental health unit. Patient was seen today by customs entry writer and appeared to be disheveled in appearance and was also responding to internal stimuli. She claims that she has been having a "mental state deterioration". She also claims that she has been experiencing "all sorts of weird stuff". She states that for the past 2 days she has been out of touch with reality and was having a difficult time explaining what her perceptions were of her surroundings and environment. She claimed that the voices have been talking to each other and "plotting against me and telling me to ". She states that she has been having a hard time concentrating and described feeling "terrified and also anxious. She states that she has been having poor sleep for the past 3 days. She states that she isn't seeing bizarre patterns "almost like him tripping off of LSD". She states that she has not been able to give a urine drug screen at this time as she has not had to urinate and also states that she has been using marijuana approximately 2 joints per day and describes occasional alcohol and also cigarettes daily and denies any other recreational drug use. She states that she used to be on Prolixin and several other antipsychotic medications over states that she does not want to go back on Prolixin as it was making her pace and "stop my.". She claims that she has been off medications for approximately 6 months now and stopped going to [facility] for her follow-up. Patient denies any suicidal or homicidal ideations intent or plan. PAST PSYCHIATRIC HISTORY: Patient states that she has a history of schizoaffective disorder. She states that she is previously on Prolixin and was receiving the Prolixin D injections at [facility] however has stopped this medication approximately 6 months ago. Things at her last hospitalization psychiatrically was in August 2018. She claims that she is not following up with a psychiatrist at this time. She had one suicide attempt where she was cutting approximately 10 years ago. PMH: Migraines and sciatica ALLERGIES: as per EMR CHEMICAL DEPENDENCY HISTORY: as per HPI FAMILY PSYCHIATRIC/SUBSTANCE USE HISTORY: She states that her father is a "sociopath" and also that her sister abuses a lot of methamphetamine. SOCIAL HISTORY: Patient was born and raised in [place] and currently now lives with her boyfriend in an apartment has 2 kids and is unemployed. She states that she has some college and used to work as a cook. She states that she does not have a history or any legal history. She states that she has 2 kids. MENTAL STATUS EXAM: General Appearance: Patient appears to be older than stated age is overweight, alert, difficult to redirect however attempts to cooperate. She is responding to internal stimuli. Patient appears to have poor hygiene and grooming. Behavior: Patient is seated without any agitated behavior. Responding to internal stimuli. Speech: Patient's speech is fluent and nonpressured. Mood/Affect: Patient reports their mood is "terrified" and admits to anxiety, affect is congruent Suicidality/Homicidality: Patient denies having any homicidal ideation intent or plan. Denies any suicidal ideations intent or plan Perceptions: Patient missed of both auditory and visual hallucinations as described above. Though content/process: Poverty of content. He endorses some paranoia. Logical. Memory and concentration: AOX3, poor attention span. Nose with current President is. Can spell "WORLD" backwards Judgment and insight: poor STRENGTHS/WEAKNESSES: strength is that patient is resilient. Weakness is that patient has poor judgment and is impulsive INTELLECT: average IMPRESSIONS: Schizoaffective disorder unspecified Anxiety disorder unspecified Cannabis use disorder Nicotine dependence PLAN: -Patient is admitted under voluntary status to MHU for stabilization of psychiatric symptoms and safety. Patient has signed adult voluntary form and medication consent and is placed in patient's chart. -Medications : Will start patient on Haldol 2 mg twice a day for psychosis. Patient is also agreeable to start trazodone 50 mg daily at bedtime for insomnia. -Ativan and Haldol PRN for agitation/aggression -Patient was counselled on substance abuse and desired to cut back on use -Patient was informed of the risks, benefits and side effects of the medication and patient verbally consented to taking the medications. Patient signed med consent form and was placed in chart. -Internal Medicine consult to perform medical evaluation and physical. -NRT - nicotine patch -SW on board for discharge planning. Encourage patient to participate in groups to work on coping skills.
[2020-08-11 12:10] LABS: Cholesterol 169 mg/dL (<200); HDL Cholesterol 46 mg/dL (40-60); LDL Cholesterol,Calculated 103 mg/dL (0-99); Triglycerides 101 mg/dL (<150)
[2020-08-11 12:58] LABS: Appearance,Urine Clear (Clear); Bacteria,Urine Occasional /hpf; Bilirubin,Urine Negative (Negative); Blood,Urine Moderate (Negative); Color,Urine Light Yellow; Glucose,Urine (UA) Negative (Negative); Hyaline Casts,Urine 1 /lpf (0-2); Ketones,Urine Negative (Negative); Leukocyte Esterase,Urine Negative (Negative); Mucus,Urine Few /hpf; Nitrite,Urine Negative (Negative); Protein,Urine Negative (Negative); RBC,Urine 1 /hpf (0-5); Squamous Epithelial Cell,Urine 2 /hpf (0-4); Urobilinogen,Urine <2.0 mg/dL (<2.0); WBC,Urine 1 /hpf (0-5)
[2020-08-11 13:05] LABS: Amphetamine Screen,Urine Not Detected (NotDetected); Barbiturate Screen,Urine Not Detected (NotDetected); Benzodiazepines Screen,Urine Not Detected (NotDetected); Cocaine Screen,Urine Not Detected (NotDetected); Methadone Screen, Urine Not Detected (NotDetected); Opiate Screen,Urine Not Detected (NotDetected); Oxycodone Screen, Urine Not Detected (NotDetected); Phencyclidine Screen,Urine Not Detected (NotDetected); Tricyclic Antidepressant,Urine Not Detected (NotDetected); Urn Cannabinoid Scrn Detected (NotDetected)
[2020-08-11 16:31] LABS: Hemoglobin A1C 5.3 % (4.0-6.0)
[2020-08-11] MEDS ORDERED: traZODone HCL 50 MG TAB PO SCH (21:00)
--- NOTE | 2020-08-12 10:01 | P.PN ---
Progress Note - Text Progress Note Date: 08/12/20 Interval History: Patient was seen attending groups this morning and was directable and agreeable to speak with policy writer typist in the office. Patient continues to have a surprised affect and continues to state that she feels scared" of what I'm going to do to myself". She states that she is continuing to hear voices throughout the day however states that they have been "more distant now". She claims that her mood is "fine" and denies any depression today and denies any anxiety as well. She claims that she is trying to go to groups and mirtazapine as best as she can. She states that she's been trying to call her boyfriend Guzman over the phone however he has not been answering his phone and she feels worried about him. She states that she has been eating her meals and states that last night she didn't get any sleep at all. Patient was agreeable to have her house on trazodone increased. At this time patient denies any suicidal or homical ideations, intent or plan. She continues to experience auditory and visual hallucinations which have been mildly improving. Patient denies any side effects from the medications and has been compliant with meds. Mental Status Exam: General Appearance: Patient appears to be older than stated age is overweight, alert, more directable today. Patient appears to have improving hygiene and grooming. Behavior: Patient is seated without any agitated behavior. Not responding to internal stimuli. Speech: Patient's speech is fluent and nonpressured. Mood/Affect: Patient reports their mood is "scared" but denies any depression or anxiety, affect is congruent Suicidality/Homicidality: Patient denies having any homicidal ideation intent or plan. Denies any suicidal ideations intent or plan Perceptions: Patient admits to both auditory and visual hallucinations, however claims improving mildly Though content/process: Patient is more goal oriented and logical today. she endorses some paranoia. Memory and concentration: AOX3, mildly improving attention span. Judgment and insight: poor, improving mildly Assessment Schizoaffective disorder unspecified Anxiety disorder unspecified Cannabis use disorder Nicotine dependence Plan: -Patient continues to meet criteria for inpatient psychiatric admission for symptom stabilization and safety. Patient has signed adult voluntary form and medication consent and was placed in patient's chart. -Medications: Increased Haldol to 3 mg twice a day for psychosis. Increase trazodone to 100 mg daily at bedtime for insomnia. -When necessary Ativan and Haldol for agitation/aggression. -NRT - nicotine patch -SW on board for discharge planning. Encouraged the patient to participate in milieu. Likely discharge next week. social worker palliative care to attempt to reach out to patient's boyfriend for further collateral and discharge planning.
[2020-08-12] MEDS: traZODone HCL 100 MG TAB PO SCH (20:53)
[2020-08-12] MEDS: haloperidoL 1 MG TAB PO SCH (20:53)
[2020-08-13] MEDS: haloperidoL 1 MG TAB PO SCH (08:37)
--- NOTE | 2020-08-13 11:16 | P.PN ---
Progress Note - Text Progress Note Date: 08/13/20 Interval History: Patient was seen lying in her bed this morning and was directable and agreeable to speak with public relations writer in the office. Today patient offers no new complaints. She continues to state that she is still hearing voices however believes that they're getting quieter and less frequent. She claims that her mood is "fine" and denies any depression today. She states that she has been talking to her boyfriend over the phone and states that "he was glad to hear from me". States that she has been trying to go to as many groups as she can with planning to do activity group after she is done talking public relations writer. She was asking about when she can be discharged. She denied any overnight complaints and claims that she was able to sleep throughout the night however did not know how long she slept. At this time patient denies any suicidal or homical ideations, intent or plan. She continues to experience auditory and visual hallucinations which have been mildly improving. Patient denies any side effects from the medications and has been compliant with meds. Mental Status Exam: General Appearance: Patient appears to be older than stated age is overweight, alert, more directable today. Patient appears to have improving hygiene and grooming. Behavior: Patient is seated without any agitated behavior. Speech: Patient's speech is fluent and nonpressured. Mood/Affect: Patient reports their mood is "a bit better" but denies any depression or anxiety, affect is congruent and constricted Suicidality/Homicidality: Patient denies having any homicidal ideation intent or plan. Denies any suicidal ideations intent or plan Perceptions: Patient admits to both auditory and visual hallucinations, however claims improving mildly Though content/process: Patient is more goal oriented and logical today. Denies any paranoia today. Memory and concentration: AOX3, mildly improving attention span. Judgment and insight: poor, improving mildly Assessment Schizoaffective disorder unspecified Anxiety disorder unspecified Cannabis use disorder Nicotine dependence Plan: -Patient continues to meet criteria for inpatient psychiatric admission for symptom stabilization and safety. Patient has signed adult voluntary form and medication consent and was placed in patient's chart. -Medications: Increased Haldol to 4 mg twice a day for psychosis. Continue with trazodone to 100 mg daily at bedtime for insomnia. -When necessary Ativan and Haldol for agitation/aggression. -NRT - nicotine patch -SW on board for discharge planning. Encouraged the patient to participate in milieu. Likely discharge next week.
[2020-08-13] MEDS: traZODone HCL 100 MG TAB PO SCH (20:12)
--- NOTE | 2020-08-14 10:30 | P.PN ---
Progress Note - Text Progress Note Date: 08/14/20 Interval History: Patient was seen lying in her bed this morning and was directable and agreeable to speak with leader writer in the office. Today patient states that she is continuing to hear the voices and claims that "sometimes it's worse than others". She did state that however the voices have been less negative towards her ever since she came in the hospital. She claims that she is no longer having visual hallucinations which she is happy about. She claims that her mood is "fine" and denies any depression today. She states that she has been talking to her boyfriend over the phone daily and remains optimistic for a discharge within the next few days. She states that "he wants to take me to the market to help him and his father". States that she has been trying to go to as many groups as she can. She states that she was able to sleep fairly throughout the night. At this time patient denies any suicidal or homical ideations, intent or plan. She continues to experience auditory and visual hallucinations which have been mildly improving. Patient denies any side effects from the medications and has been compliant with meds. Mental Status Exam: General Appearance: Patient appears to be older than stated age is overweight, alert, more directable today. Patient appears to have improving hygiene and grooming. Behavior: Patient is seated without any agitated behavior. Speech: Patient's speech is fluent and nonpressured. Mood/Affect: Patient reports their mood is "a bit better" but denies any depression or anxiety, affect is congruent and constricted Suicidality/Homicidality: Patient denies having any homicidal ideation intent or plan. Denies any suicidal ideations intent or plan Perceptions: Patient admits to auditory and denies any visual hallucinations, however claims improving mildly Though content/process: Patient is more goal oriented and logical today. Denies any paranoia today. Memory and concentration: AOX3, mildly improving attention span. Judgment and insight: poor, improving mildly Assessment Schizoaffective disorder unspecified Anxiety disorder unspecified Cannabis use disorder Nicotine dependence Plan: -Patient continues to meet criteria for inpatient psychiatric admission for symptom stabilization and safety. Patient has signed adult voluntary form and medication consent and was placed in patient's chart. -Medications: Increased Haldol to 5 mg twice a day for psychosis. Continue with trazodone to 100 mg daily at bedtime for insomnia. -When necessary Ativan and Haldol for agitation/aggression. -NRT - nicotine patch -SW on board for discharge planning. Encouraged the patient to participate in milieu. Likely discharge in the next 2-3 days
[2020-08-14] MEDS: haloperidoL 5 MG TAB PO SCH (20:06)
[2020-08-14] MEDS: traZODone HCL 100 MG TAB PO SCH (20:06)
[2020-08-15] MEDS: haloperidoL 5 MG TAB PO SCH (08:34)
--- NOTE | 2020-08-15 10:21 | P.PN ---
Progress Note - Text Progress Note Date: 08/15/20 Interval History: Patient was seen sitting in a group this morning and was directable and agreea ble to speak with typewriter operator automatic in the office. Today patient states that she is continuing to hear the voices once again. She states that "it hasn't changed much since yesterday". She claims that the voices have been whispering in her head all day however have not been telling her to do anything. She states that they call her "Mawy" and states that they are mispronouncing her name. She states that the voices are not negative towards her and not telling her to harm herself. She claims that she is no longer having visual hallucinations. She claims that her mood is "the same" and denies any depression today. She states that she has been talking to her boyfriend over the phone daily. States that she has been trying to go to as many groups as she can and participating with others. She states that she was able to sleep fairly throughout the night. At this time patient denies any suicidal or homical ideations, intent or plan. She continues to experience auditory hallucinations which have been mildly improving. Patient did claim that she was having some muscle stiffness near her neck since yesterday. Mental Status Exam: General Appearance: Patient appears to be older than stated age is overweight, alert, more directable today. Patient appears to have improving hygiene and grooming. Behavior: Patient is seated without any agitated behavior. Speech: Patient's speech is fluent and nonpressured. Mood/Affect: Patient reports their mood is "the same" but denies any depression or anxiety, affect is congruent and constricted Suicidality/Homicidality: Patient denies having any homicidal ideation intent or plan. Denies any suicidal ideations intent or plan Perceptions: Patient admits to auditory as described above and denies any visual hallucinations Though content/process: Patient is more goal oriented and logical today. Denies any paranoia today. Memory and concentration: AOX3, mildly improving attention span. Judgment and insight: poor, improving mildly Assessment Schizoaffective disorder unspecified Anxiety disorder unspecified Cannabis use disorder Nicotine dependence Plan: -Patient continues to meet criteria for inpatient psychiatric admission for symptom stabilization and safety. Patient has signed adult voluntary form and medication consent and was placed in patient's chart. -Medications: Increased Haldol to 6 mg twice a day for psychosis. Continue with trazodone to 100 mg daily at bedtime for insomnia. Added Cogentin 0.5 mg twice a day for EPS prophylaxis. -When necessary Ativan and Haldol for agitation/aggression. -NRT - nicotine patch -SW on board for discharge planning. Encouraged the patient to participate in milieu. Likely discharge in the next 2-3 days
[2020-08-15] MEDS: BENZTROPINE MESYLATE 0.5 MG TAB PO SCH ×2 (10:24→20:11)
[2020-08-15] MEDS: traZODone HCL 100 MG TAB PO SCH (20:11)
[2020-08-16 06:27] VITALS: BP 128/72; PULSE 78; RESP 17; TEMP 97.9
[2020-08-16] MEDS: BENZTROPINE MESYLATE 0.5 MG TAB PO SCH (08:01)
--- NOTE | 2020-08-16 10:40 | P.DS ---
Providers Date of admission: 08/10/20 22:02 Expected date of discharge: 08/16/20 Attending physician: Ryan Mcneill MD Consults: 08/10/20 22:05 Consult Physician Routine Consulting Provider: Adriel Physician Consult Reason/Comments: medical management Do you want consulting provider notified?: Yes Primary care physician: [facility] - Discharge Diagnosis(es) (1) Schizoaffective disorder Current Visit: Yes Status: Acute Priority: High (2) Anxiety disorder Current Visit: Yes Status: Acute Priority: Medium (3) Cannabis use disorder, mild, abuse Current Visit: Yes Status: Acute Priority: Medium (4) Nicotine dependence Current Visit: Yes Status: Acute Priority: Low Hospital Course: Admission HPI: Admission note was completed by internal communications writer "Patient is a 40-year-old female who currently lives with her boyfriend in apartment has 2 kids of her own and is unemployed at this time. Patient presented to the hospital yesterday and was complaining in the ER of being off of her medications for several months and apparently seeing things and hearing voices. Patient apparently made statements that she may harm herself and was swearing and cursing and demanding to be admitted to the mental health unit. Patient was seen today by internal communications writer and appeared to be disheveled in appearance and was also responding to internal stimuli. She claims that she has been having a "mental state deterioration". She also claims that she has been experiencing "all sorts of weird stuff". She states that for the past 2 days she has been out of touch with reality and was having a difficult time explaining what her perceptions were of her surroundings and environment. She claimed that the voices have been talking to each other and "plotting against me and telling me to ". She states that she has been having a hard time concentrating and described feeling "terrified and also anxious. She states that she has been having poor sleep for the past 3 days. She states that she isn't seeing bizarre patterns "almost like him tripping off of LSD". She states that she has not been able to give a urine drug screen at this time as she has not had to urinate and also states that she has been using marijuana approximately 2 joints per day and describes occasional alcohol and also cigarettes daily and denies any other recreational drug use. She states that she used to be on Prolixin and several other antipsychotic medications over states that she does not want to go back on Prolixin as it was making her pace and "stop my". She claims that she has been off medications for approximately 6 months now and stopped going to [facility] for her follow-up. Patient denies any suicidal or homicidal ideations intent or plan." Hospital course: Upon admission to the unit patient was initially bizarre, responding to internal stimuli, paranoid and experiencing auditory hallucinations. Patient was however directable and agreeable to commence treatment and signed adult voluntary form. Patient got along well with other patients on the unit and followed unit protocol. Patient was compliant with the medications and denied any side effects throughout hospital course. Patient was started on haloperidol and titrated up to a dose of 6 mg twice a day for psychosis. Patient was offered to be transitioned onto haloperidol decanoate long-acting injection however patient declined and preferred to take the oral medications. Patient was also started on trazodone and titrate up to a dose of 100 mg daily at bedtime for insomnia/mood. Patient was also started on Cogentin 0.5 mg twice a day for EPS prophylaxis. Patient spoke of her stressors and engaged in therapy both group and individual. Patient was also seen by medical team for history and physical exam. Throughout the course of the hospitalization patient gradually improved with regards to mood, psychosis, hallucinations, sleep and became more future oriented with improved insight and judgment. On the day of discharge patient denied any suicidal or homicidal ideations intent or plan. Patient also claims that the auditory hallucinations have significantly subsided and are non- distressing to her at this point and are merely just "whispers at times that dont bother me". She denies any visual hallucinations. Patient endorsed wanting to live for her health and her future. The patient denied any access to guns or weapons. Patient denied any paranoia and did not endorse any delusions. Patient does have a significant history of substance abuse and was counseled on abstaining from all substances including alcohol and marijuana. Patient wanted to cut back on her marijuana use on her own. Patient was also counseled on the medications and need for regular compliance and was encouraged to follow-up with their outpatient appointment for mental health and also for primary care. Prior to discharge a family meeting will be arranged by school social worker to answer any questions and ensure safety upon discharge. Mental status exam: General Appearance: Patient appears to be overweight, stated age is alert, directable, and attempts to be cooperative. Patient is in no acute distress and has improved hygiene and grooming Behavior: Patient is calmly seated without any agitated behavior. Speech: Patient's speech is fluent and nonpressured. Mood/Affect: Patient reports their mood is "good", affect is congruent Suicidality/Homicidality: Patient denies having any suicidal or homicidal ideation intent or plan. Perceptions: Patient denies any auditory or visual hallucinations. Though content/process: There is no evidence of any delusional thought content and thought process is linear and goal-directed. Memory and concentration: AOX3, grossly intact for the purposes of this session. Can spell "WORLD" backwards correctly. Judgment and insight: chronically poor, however has improved with guarded prognosis Impression: Schizoaffective disorder unspecified Anxiety disorder unspecified Cannabis use disorder Nicotine dependence Plan: -Continue with discharge today as patient has improved and stabilized psychiatrically and is not currently an imminent threat to herself and/or others. Patient will remain at chronically elevated risk for harm to self and/or others due to her substance abuse and chronically poor insight. -Continue medications: Continue with haloperidol by mouth 6 mg twice a day for psychosis. Continue with trazodone 100 mg daily at bedtime for insomnia/mood, continue with Cogentin 0.5 mg twice a day for EPS prophylaxis. -Patient was counseled on the need for medication compliance and appropriate follow-up at mental health and also primary care for medical issues. Patient verbalized understanding and agreed. -Social work to arrange for and conduct family meeting to ensure safety upon discharge and answer any questions/concerns. Social work also to arrange for patients follow up appointments with [facility] for psychiatric care along with follow up with primary care provider. -Patient counseled on abstaining from recreational drugs and marijuana and alcohol. Was informed/educated on the adverse effects on their physical and mental health. Patient verbally agreed and understood. Patient claims that she wants to cut back on her substance use on her own. -Patient was instructed to return to the hospital or seek immediate medical care if their psychiatric or medical symptoms do worsen or reoccur. Allergies Allergy/AdvReac Type Severity Reaction Status Date / Time paliperidone [From Invega] Allergy Unknown Verified 08/11/20 03:59 Laboratory Results WBC 6.8 k/uL (3.8-10.6) 08/11/20 09:52 RBC 5.13 m/uL (3.80-5.40) 08/11/20 09:52 Hgb 15.3 gm/dL (11.4-16.0) 08/11/20 09:52 Hct 47.0 % (34.0-46.0) H 08/11/20 09:52 MCV 91.6 fL (80.0-100.0) 08/11/20 09:52 MCH 29.9 pg (25.0-35.0) 08/11/20 09:52 MCHC 32.6 g/dL (31.0-37.0) 08/11/20 09:52 RDW 14.9 % (11.5-15.5) 08/11/20 09:52 Plt Count 269 k/uL (150-450) 08/11/20 09:52 MPV 7.4 08/11/20 09:52 Neutrophils % 66 % 08/11/20 09:52 Lymphocytes % 23 % 08/11/20 09:52 Monocytes % 6 % 08/11/20 09:52 Eosinophils % 3 % 08/11/20 09:52 Basophils % 0 % 08/11/20 09:52 Neutrophils # 4.5 k/uL (1.3-7.7) 08/11/20 09:52 Lymphocytes # 1.6 k/uL (1.0-4.8) 08/11/20 09:52 Monocytes # 0.4 k/uL (0-1.0) 08/11/20 09:52 Eosinophils # 0.2 k/uL (0-0.7) 08/11/20 09:52 Basophils # 0.0 k/uL (0-0.2) 08/11/20 09:52 Sodium 142 mmol/L (137-145) 08/11/20 09:52 Potassium 4.3 mmol/L (3.5-5.1) 08/11/20 09:52 Chloride 107 mmol/L (98-107) 08/11/20 09:52 Carbon Dioxide 28 mmol/L (22-30) 08/11/20 09:52 Anion Gap 7 mmol/L 08/11/20 09:52 BUN 13 mg/dL (7-17) 08/11/20 09:52 Creatinine 0.90 mg/dL (0.52-1.04) 08/11/20 09:52 Est GFR (CKD-EPI)AfAm >90 (>60 ml/min/1.73 sqM) 08/11/20 09:52 Est GFR (CKD-EPI)NonAf 81 (>60 ml/min/1.73 sqM) 08/11/20 09:52 Glucose 91 mg/dL (74-99) 08/11/20 09:[address] Glu mg/dL 105 08/11/20 09:52 Hemoglobin A1c 5.3 % (4.0-6.0) 08/11/20 09:52 Calcium 9.6 mg/dL (8.4-10.2) 08/11/20 09:52 Total Bilirubin 0.8 mg/dL (0.2-1.3) 08/11/20 09:52 AST 33 U/L (14-36) 08/11/20 09:52 ALT 19 U/L (4-34) 08/11/20 09:52 Alkaline Phosphatase 64 U/L (38-126) 08/11/20 09:52 Total Protein 7.6 g/dL (6.3-8.2) 08/11/20 09:52 Albumin 4.2 g/dL (3.5-5.0) 08/11/20 09:52 Triglycerides 101 mg/dL (<150) 08/11/20 09:52 Cholesterol 169 mg/dL (<200) 08/11/20 09:52 LDL Cholesterol, Calc 103 mg/dL (0-99) H 08/11/20 09:52 HDL Cholesterol 46 mg/dL (40-60) 08/11/20 09:52 Urine Color Light Yellow 08/11/20 12:10 Urine Appearance Clear (Clear) 08/11/20 12:10 Urine pH 6.0 (5.0-8.0) 08/11/20 12:10 Ur Specific [place] 1.010 (1.001-1.035) 08/11/20 12:10 Urine Protein Negative (Negative) 08/11/20 12:10 Urine Glucose (UA) Negative (Negative) 08/11/20 12:10 Urine Ketones Negative (Negative) 08/11/20 12:10 Urine Blood Moderate (Negative) H 08/11/20 12:10 Urine Nitrite Negative (Negative) 08/11/20 12:10 Urine Bilirubin Negative (Negative) 08/11/20 12:10 Urine Urobilinogen <2.0 mg/dL (<2.0) 08/11/20 12:10 Ur Leukocyte Esterase Negative (Negative) 08/11/20 12:10 Urine RBC 1 /hpf (0-5) 08/11/20 12:10 Urine WBC 1 /hpf (0-5) 08/11/20 12:10 Ur Squamous Epith Cells 2 /hpf (0-4) 08/11/20 12:10 Urine Bacteria Occasional /hpf (None) H 08/11/20 12:10 Hyaline Casts 1 /lpf (0-2) 08/11/20 12:10 Urine Mucus Few /hpf (None) H 08/11/20 12:10 Urine Opiates Screen Not Detected (NotDetected) 08/11/20 12:10 Ur Oxycodone Screen Not Detected (NotDetected) 08/11/20 12:10 Urine Methadone Screen Not Detected (NotDetected) 08/11/20 12:10 Ur Propoxyphene Screen Not Detected (NotDetected) 08/11/20 12:10 Ur Barbiturates Screen Not Detected (NotDetected) 08/11/20 12:10 U Tricyclic Antidepress Not Detected (NotDetected) 08/11/20 12:10 Ur Phencyclidine Scrn Not Detected (NotDetected) 08/11/20 12:10 Ur Amphetamines Screen Not Detected (NotDetected) 08/11/20 12:10 U Methamphetamines Scrn Not Detected (NotDetected) 08/11/20 12:10 U Benzodiazepines Scrn Not Detected (NotDetected) 08/11/20 12:10 Urine Cocaine Screen Not Detected (NotDetected) 08/11/20 12:10 U Marijuana (THC) Screen Detected (NotDetected) H 08/11/20 12:10 Coronavirus (PCR) Not Detected (Not Detectd) 08/10/20 22:25 Vital Signs Temp 97.9 F 08/16/20 06:26 Pulse 78 08/16/20 06:26 Resp 17 08/16/20 06:26 BP 128/72 11/24/20 06:26 Pulse Ox 97 08/16/20 06:26 Patient Condition at Discharge: Stable Plan - Discharge Summary New Discharge Prescriptions: New Benztropine Mesylate [Cogentin] 0.5 mg PO BID 30 Days tab traZODone HCL [Desyrel] 100 mg PO HS 30 Days tab haloperidoL [Haldol] 6 mg PO BID 30 Days tablet Acetaminophen Tab [Tylenol] 650 mg PO Q4HR PRN tab PRN Reason: Pain/Discomfort Discharge Medication List Acetaminophen Tab [Tylenol] 650 mg PO Q4HR PRN tab 08/16/20 [Rx] Benztropine Mesylate [Cogentin] 0.5 mg PO BID 30 Days tab 08/16/20 [Rx] haloperidoL [Haldol] 6 mg PO BID 30 Days tablet 08/16/20 [Rx] traZODone HCL [Desyrel] 100 mg PO HS 30 Days tab 08/16/20 [Rx] Follow up Appointment(s)/Referral(s): [facility] [Primary Care Provider] - 1-2 days Patient Instructions/Handouts: Schizophrenia (DC) Activity/Diet/Wound Care/Special Instructions: Activity and diet as tolerated. Avoid the use of street drugs and alcohol. Take all medications as prescribed. When you are in need of refills on your medications please contact your medical provider and/or outpatient psychiatrist to have this done. Please go to scheduled outpatient appointment for aftercare treatment. If symptoms return or become worse, call the crisis line at and/or go to the nearest emergency room for evaluation. Discharge Disposition: HOME SELF-CARE
== END 2020-08-16 14:11 | disposition home or self-care (01) | DRG 885 ==
LOC: EC 17:16 → 3MHU 22:02
PROVIDERS: ADMIT Psychiatry & Neurology Psychiatry; ATTEND Psychiatry & Neurology Psychiatry
DX: F25.9 Schizoaffective disorder, unspecified (principal); F12.10 Cannabis abuse, uncomplicated; F31.9 Bipolar disorder, unspecified; F41.0 Panic disorder [episodic paroxysmal anxiety]; F43.10 Post-traumatic stress disorder, unspecified; Z20.828 Contact with and (suspected) exposure to other viral communicable diseases; G47.00 Insomnia, unspecified; I83.90 Asymptomatic varicose veins of unspecified lower extremity; F17.210 Nicotine dependence, cigarettes, uncomplicated; Z91.5 Personal history of self-harm; Z86.69 Personal history of other diseases of the nervous system and sense organs; Z90.49 Acquired absence of other specified parts of digestive tract; Z86.19 Personal history of other infectious and parasitic diseases; Z98.51 Tubal ligation status; Z87.19 Personal history of other diseases of the digestive system; Z98.890 Other specified postprocedural states; Z88.8 Allergy status to other drugs, medicaments and biological substances; Z71.51 Drug abuse counseling and surveillance of drug abuser; Z87.09 Personal history of other diseases of the respiratory system; Z81.1 Family history of alcohol abuse and dependence; Z83.49 Family history of other endocrine, nutritional and metabolic diseases
CPT/HCPCS: 80053; 80061; 80306; 81001; 82075; 83036; 85025; 87635; 99285